=== PATIENT | male | born 1980 | race African-American/Black ===

== ENCOUNTER 2018-09-21 13:16 | Emergency (ER) | payer SELFPAY ==
[~2018-09-21] VITALS: Ht 170.2 cm; Wt 90.7 kg
[~2018-09-21 13:16] MED LIST: CIPR500T94 PO; TAMS0.4C97 PO
[2018-09-21 13:20] VITALS: BP 142/82
[2018-09-21] MEDS ORDERED: SULF1TAB24 PO (13:40)
[2018-09-21] MEDS ORDERED: CEPH500C PO (13:40)
[2018-09-21] MEDS ORDERED: NYST15CR TP (13:40)
[2018-09-21] MEDS ORDERED: NYST15PO9 TP (13:40)
--- NOTE | 2018-09-21 13:40 | PHYS DOC ---
Past Medical History Past Medical History: No Pertinent History Past Surgical History: No Surgical History Alcohol Use: Occasionally Drug Use: Marijuana Adult General Chief Complaint Chief Complaint: SKIN PROBLEM HPI HPI Patient is a 38 year old male with no significant medical history who presents to the ED today complaining of peeling skin on his hands and feet that began a year ago, he states he formed blisters on his right foot and popped open the bli sters a couple days ago and one of the areas is infected. Denies any fever. Denies any history of diabetes. Review of Systems Review of Systems Constitutional: Denies fever or chills [] Musculoskeletal: Denies back pain or joint pain [] Integument: Reports peeling skin on bilateral hands and feet, blisters on the right foot as well as right foot infection. Neurologic: Denies headache, focal weakness or sensory changes [] All other systems were reviewed and found to be within normal limits, except as documented in this note. Allergies Allergies Allergies Coded Allergies Type Severity Reaction Last Updated Verified No Known Drug Allergies 11/17/15 No Physical Exam Physical Exam Constitutional: Well developed, well nourished, no acute distress, non-toxic appearance. [] Skin: Warm, dry, lateral hind with multiple areas of peeling skin consistent with fungal infection. Bilateral feet with multiple healing areas consistent with fungal infection. The arc of the right foot with an open area that appears infection, this a couple blisters also noted on the right foot approximately 3. No redness to this regions. Back: No tenderness, no CVA tenderness. [] Extremities: No tenderness, no cyanosis, no clubbing, ROM intact, no edema. [] Neurologic: Alert and oriented X 3, normal motor function, normal sensory function, no focal deficits noted. [] Psychologic: Affect normal, judgement normal, mood normal. [] EKG EKG [] Radiology/Procedures Radiology/Procedures [] Course & Med Decision Making Course & Med Decision Making Pertinent Labs and Imaging studies reviewed. (See chart for details) This is a 38-year-old male patient who presents to the ED today with fungal infection on the feet as well as hand. Some of the areas on the right foot appear infected. Patient was discharged on nystatin, Bactrim and cephalexin. Tetanus was administered in the ED. Importance of good foot and hand care emphasized. Dragon Disclaimer Dragon Disclaimer This electronic medical record was generated, in whole or in part, using a voice recognition dictation system. Departure Departure Impression: Primary Impression: Athlete's foot, left Additional Impressions: Athlete's foot on right Skin infection Disposition: 01 HOME, SELF-CARE Condition: STABLE Referrals: NO PCP (PCP) follow up with your doctor in 2 weeks Patient Instructions: Athlete's Foot-SportsMed, Skin Infections Additional Instructions: You have fungal infections to your hands and feet, some of the areas of the right foot appear infected. We put you on antibiotics as well as antifungal medications, take them as prescribed. Please use the antifungal medication until all the lesions on your hand and feet are gone. Scripts Cephalexin (CEPHALEXIN) 500 Mg Capsule 1 CAP PO QID, #40 CAP Prov: SYL PEOPLES APRN 09/21/18 Sulfamethoxazole/Trimethoprim (BACTRIM DS TABLET) 1 Each Tablet 1 TAB PO BID, #20 TAB Prov: SYL PEOPLES APRN 09/21/18 Nystatin (NYSTATIN) 15 Gm Powder 1 BEAR TP BID, #1 BOTTLE 3 Refills Use the powder on your feet and in your shoes. Prov: SYL PEOPLES APRN 09/21/18 Nystatin (NYSTATIN) 15 Gm Cream..g. 1 BEAR TP TID, #30 GM 2 Refills use the cream on your hands and fingers. You can also use it on your feet Prov: SYL PEOPLES APRN 09/21/18 Problem Qualifiers SYL PEOPLES APRN Sep 21, 2018 13:40
[2018-09-21] MEDS ORDERED: DIPHTH,PERTUSS(ACELL),TET TOX 0.5 ML DISP.SYRIN. VAX IM ONE (13:45)
== END 2018-09-21 13:55 | disposition home or self-care (01) ==
LOC: ER 13:16
DX: B35.3 Tinea pedis (principal)
CPT/HCPCS: 90471; 90715; 99283

== ENCOUNTER 2019-03-14 08:44 | Emergency (ER) | payer SELFPAY ==
[~2019-03-14] VITALS: Ht 177.8 cm; Wt 90.9 kg
[~2019-03-14 08:44] MED LIST changes: +CEPH500C PO; +NYST15CR TP; +NYST15PO9 TP; +SULF1TAB24 PO
[2019-03-14 09:00] VITALS: BP 129/86
[2019-03-14] MEDS ORDERED: AZITHROMYCIN 250 MG TABLET. PO ONE (09:30)
[2019-03-14] MEDS ORDERED: metroNIDAZOLE 500 MG TABLET PO ONE (09:30)
[2019-03-14] MEDS ORDERED: cefTRIAXone IM 250 MG VIAL IM ONE (09:30)
--- NOTE | 2019-03-14 09:34 | PHYS DOC ---
Past Medical History Past Medical History: No Pertinent History Past Surgical History: No Surgical History Alcohol Use: Occasionally Drug Use: Marijuana Adult General Chief Complaint Chief Complaint: PENIS PROBLEM HPI HPI Patient is a 38 year old male with history of Chlamydia presenting to the ED today complaining of thick white penile discharge that began yesterday. Patient is concerned about STDs and like to be treated Review of Systems Review of Systems Constitutional: Denies fever or chills [] GI: Denies abdominal pain, nausea, vomiting, bloody stools or diarrhea [] : Reports penile discharge. Denies dysuria or hematuria [] Musculoskeletal: Denies back pain or joint pain [] Integument: Denies rash or skin lesions [] Neurologic: Denies headache, focal weakness or sensory changes [] All other systems were reviewed and found to be within normal limits, except as documented in this note. Current Medications Current Medications Current Medications Medications (Trade) Dose Ordered Sig/Ed Start Time Stop Time Status Last Admin Dose Admin Azithromycin (Zithromax) 1,000 mg 1X ONCE 03/14/19 09:30 03/14/19 09:31 Ceftriaxone Sodium (Rocephin Im) 250 mg 1X ONCE 03/14/19 09:30 03/14/19 09:31 Metronidazole (Flagyl) 2,000 mg 1X ONCE 03/14/19 09:30 03/14/19 09:31 UNV Allergies Allergies Allergies Coded Allergies Type Severity Reaction Last Updated Verified No Known Drug Allergies 11/17/15 No Physical Exam Physical Exam Constitutional: Well developed, well nourished, no acute distress, non-toxic appearance. [] Abdomen: Bowel sounds normal, soft, no tenderness, no masses, no pulsatile masses. [] Skin: Warm, dry, no erythema, no rash. [] Back: No tenderness, no CVA tenderness. [] Extremities: No tenderness, no cyanosis, no clubbing, ROM intact, no edema. [] Neurologic: Alert and oriented X 3, normal motor function, normal sensory function, no focal deficits noted. [] Psychologic: Affect normal, judgement normal, mood normal. [] Current Patient Data Vital Signs Vital Signs Date Time Temp Pulse Resp B/P (MAP) Pulse Ox O2 Delivery O2 Flow Rate FiO2 03/14/19 09:00 97.8 88 16 129/86 (100) 97 Room Air 97.8 EKG EKG [] Radiology/Procedures Radiology/Procedures [] Course & Med Decision Making Course & Med Decision Making Pertinent Labs and Imaging studies reviewed. (See chart for details) This is a 38-year-old male patient presenting to the ED today with STD concern. Patient was treated, STD education provided. Follow-up with primary care doctor or the health department. Dragon Disclaimer Dragon Disclaimer This electronic medical record was generated, in whole or in part, using a voice recognition dictation system. Departure Departure Impression: Primary Impression: Concern about STD in male without diagnosis Disposition: 01 HOME, SELF-CARE Condition: STABLE Referrals: NO PCP (PCP) Follow-up with the health department Patient Instructions: Sexually Transmitted Disease Additional Instructions: You were treated for sexually transmitted diseases. Please use protection at all times. Contact all your sex partners, let them know you were treated for STDs and ask them to seek treatment too. Do not have any intercourse for details. Use protection at all times SYL PEOPLES APRN Mar 14, 2019 09:34
[2019-03-14 09:50] LABS: BILIRUBIN,URINE NEGATIVE (NEG); CLARITY,URINE CLEAR; COLOR,URINE YELLOW; NITRITE,URINE NEGATIVE (NEG); PROTEIN,URINE NEGATIVE (NEG-TRACE)
[2019-03-14 10:03] LABS: SQUAMOUS EPITHELIAL CELL,UR FEW /LPF
[2019-03-14 10:04] LABS: BACTERIA,URINE 0 /HPF (0-FEW); RBC,URINE 0 /HPF (0-2); WBC,URINE >40 /HPF (0-4)
== END 2019-03-14 09:57 | disposition home or self-care (01) ==
LOC: ER 08:44
DX: R36.9 Urethral discharge, unspecified (principal); F12.90 Cannabis use, unspecified, uncomplicated; Z20.2 Contact with and (suspected) exposure to infections with a predominantly sexual mode of transmission
CPT/HCPCS: 81001; 87491; 87591; 96372; 99284; J0696; Q0144

== ENCOUNTER 2019-07-15 13:01 | Emergency (ER) | payer SELFPAY ==
[~2019-07-15] VITALS: Ht 175.3 cm; Wt 95.0 kg
[2019-07-15 13:07] VITALS: BP 133/85
[2019-07-15] MEDS ORDERED: NYST15PO9 TP (13:48)
--- NOTE | 2019-07-15 13:49 | PHYS DOC ---
Past Medical History Past Medical History: No Pertinent History Past Surgical History: No Surgical History Smoking Status: Former Smoker Alcohol Use: Occasionally Drug Use: Marijuana Social History Narrative: DAILY MARIJUANA USE General Adult EDM: Chief Complaint: SKIN RASH/ABSCESS HPI: HPI: Patient is a 38 year old male who presents to the ED today complaining of fungal infection to the hands and feet that he has had for a while. Patient states he has been treated for this before but it came back months later. He states he does not know if he has any history of diabetes or not. Review of Systems: Review of Systems: Constitutional: Denies fever or chills. [] Musculoskeletal: Denies back pain or joint pain. [] Integument: Reports fungal infection on the hands and feet Neurologic: Denies headache, focal weakness or sensory changes. [] Psychiatric: Denies depression or anxiety. [] Heart Score: Risk Factors: Risk Factors: DM, Current or recent (<one month) smoker, HTN, HLP, family history of CAD, obesity. Risk Scores: Score 0 - 3: 2.5% MACE over next 6 weeks - Discharge Home Score 4 - 6: 20.3% MACE over next 6 weeks - Admit for Clinical Observation Score 7 - 10: 72.7% MACE over next 6 weeks - Early Invasive Strategies Allergies: Allergies: Allergies Coded Allergies Type Severity Reaction Last Updated Verified No Known Drug Allergies 11/17/15 No Physical Exam: PE: Constitutional: Well developed, well nourished, no acute distress, non-toxic appearance. [] Skin: Warm, dry, bilateral feet with flaky peeling of skin consistent with athletes feet. Small amount of similar lesions noted on the palm of his hands Back: No tenderness, no CVA tenderness. [] Extremities: No tenderness, no cyanosis, no clubbing, ROM intact, no edema. [] Neurologic: Alert and oriented X 3, normal motor function, normal sensory function, no focal deficits noted. [] Psychologic: Affect normal, judgement normal, mood normal. [] Current Patient Data: Vital Signs: Vital Signs Date Time Temp Pulse Resp B/P (MAP) Pulse Ox O2 Delivery O2 Flow Rate FiO2 07/15/19 13:07 97.8 71 16 133/85 (101) 99 Room Air 97.8 EKG: EKG: [] Radiology/Procedures: Radiology/Procedures: [] Course & Med Decision Making: Course & Med Decision Making Pertinent Labs and Imaging studies reviewed. (See chart for details) This is a 38-year-old male patient presenting to the ED today with fungal infection on the feet and hands. Patient was discharged with nystatin. Provided return precautions. Provided clinic list to follow-up. Importance of good hygiene emphasized. [place] Disclaimer: Nadine Disclaimer: This electronic medical record was generated, in whole or in part, using a voice recognition dictation system. Departure Departure Impression: Primary Impression: Athlete's foot on right Additional Impression: Athlete's foot, left Disposition: HOME, SELF-CARE Condition: STABLE Referrals: NO PCP (PCP) follow up with a doctor from the list provided in 1-2 weeks Patient Instructions: Athlete's Foot, [id number] Additional Instructions: You have fungal infection to your hands and feet. Use the medication prescribed as ordered. Please establish care with one of the clinics provided from the list you were given and start following up. Try and keep your feet and hands clean and dry. Use the prescribed powder in your shoes as well. Scripts Nystatin (NYSTATIN) 15 Gm Powder 1 BEAR TP BID, #1 BOTTLE 2 Refills apply to affected area(s) Prov: SYL PEOPLES APRN 07/15/19 SYL PEOPLES APRN Jul 15, 2019 13:49
== END 2019-07-15 13:50 | disposition home or self-care (01) ==
LOC: ER 13:01
DX: B35.3 Tinea pedis (principal); B35.2 Tinea manuum; Z87.891 Personal history of nicotine dependence
CPT/HCPCS: 99283